=== PATIENT | male | born 1965 | race African-American/Black ===

== ENCOUNTER 2017-03-05 16:38 | Emergency (ER) | payer OTHER ==
[~2017-03-05] VITALS: Ht 160 cm; Wt 98.0 kg
[~2017-03-05 16:38] MED LIST: AMLO-147 PO; TRAM50TA2 PO
[2017-03-05 16:41] VITALS: Ht 160 cm; Wt 98.0 kg
[2017-03-05] MEDS ORDERED: HYDROCODONE/APAP (5/325) TAB PO ONE (18:00)
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
--- NOTE | 2017-03-05 19:47 | RADRPT ---
PROCEDURE: XR Femur. CLINICAL INDICATION: Pain. TECHNIQUE: AP and lateral views of the right femur. COMPARISON: None available. FINDINGS: No fracture or dislocation is identified. The joint spaces are preserved. There is no significant soft tissue swelling. IMPRESSION: 1. No fracture or dislocation of the right femur. RPTAT: HTAR .Malachi Farris MD, MD Date Time Electronically viewed and signed by .Malachi Farris MD, on 03/05/2017 19:47 .R/
[2017-03-05] MEDS ORDERED: HYDR-906 PO (20:00)
[2017-03-05] MEDS ORDERED: NAPR-260 PO (20:00)
== END 2017-03-05 20:01 | disposition home or self-care (01) ==
LOC: FTE 16:38
DX: S89.91XA Unspecified injury of right lower leg, initial encounter (principal); I10 Essential (primary) hypertension; V49.40XA Driver injured in collision with unspecified motor vehicles in traffic accident, initial encounter
CPT/HCPCS: 73550; 73562

== ENCOUNTER 2017-05-06 12:20 | Emergency (ER) | payer SELFPAY ==
[~2017-05-06] VITALS: Ht 170.2 cm; Wt 99.0 kg
[~2017-05-06 12:20] MED LIST changes: +HYDR-906 PO; +NAPR-260 PO
[2017-05-06 12:30] VITALS: Ht 170.2 cm; Wt 99.0 kg
== END 2017-05-06 14:58 | disposition left against medical advice (07) ==
LOC: E/R 12:20
DX: Z53.21 Procedure and treatment not carried out due to patient leaving prior to being seen by health care provider (principal)